=== PATIENT | female | born 1955 | race Caucasian/White ===

== ENCOUNTER → 2021-10-20 09:00 | Outpatient (BNVA) | payer MEDICARE, SELFPAY | PROVIDERS: PCP Family Medicine; Visit Provider Internal Medicine Rheumatology | DX: M15.9 Polyosteoarthritis, unspecified (principal); M79.7 Fibromyalgia; L40.0 Psoriasis vulgaris; Z79.899 Other long term (current) drug therapy; E11.9 Type 2 diabetes mellitus without complications; Z11.59 Encounter for screening for other viral diseases; Z11.1 Encounter for screening for respiratory tuberculosis; Z79.84 Long term (current) use of oral hypoglycemic drugs; G47.30 Sleep apnea, unspecified; Z82.61 Family history of arthritis; M45.6 Ankylosing spondylitis lumbar region | CPT/HCPCS: 36415; 72100; 72202; 73130; 73630; 80076; 82306; 82565; 85025; 85651; 86038; 86140; 86200; 86431; 86480; 86704; 86803; 86812; 87340; 99204; 99214 ==

== ENCOUNTER → 2022-01-05 12:51 | Outpatient (BNVA) | payer MEDICARE, SELFPAY | PROVIDERS: PCP Family Medicine; Visit Provider Internal Medicine Rheumatology | DX: M15.9 Polyosteoarthritis, unspecified (principal); Z79.899 Other long term (current) drug therapy; L40.0 Psoriasis vulgaris; R76.8 Other specified abnormal immunological findings in serum; Z11.59 Encounter for screening for other viral diseases; Z11.1 Encounter for screening for respiratory tuberculosis; Z82.61 Family history of arthritis; M79.7 Fibromyalgia; G47.30 Sleep apnea, unspecified; K21.9 Gastro-esophageal reflux disease without esophagitis | CPT/HCPCS: 99214 ==

== ENCOUNTER → 2022-04-05 13:59 | Outpatient (BNVA) | payer MEDICARE, SELFPAY | PROVIDERS: PCP Family Medicine; Visit Provider Internal Medicine Rheumatology | DX: Z79.899 Other long term (current) drug therapy (principal); R76.8 Other specified abnormal immunological findings in serum; L40.0 Psoriasis vulgaris; M19.90 Unspecified osteoarthritis, unspecified site | CPT/HCPCS: 99214 ==

== ENCOUNTER → 2022-06-29 13:48 | Outpatient (BNVA) | payer MEDICARE, SELFPAY | PROVIDERS: PCP Family Medicine; Visit Provider Internal Medicine Rheumatology | DX: M19.90 Unspecified osteoarthritis, unspecified site (principal); L40.0 Psoriasis vulgaris; Z79.899 Other long term (current) drug therapy; R76.8 Other specified abnormal immunological findings in serum | CPT/HCPCS: 80076; 82565; 85025; 86140; 99214 ==

== ENCOUNTER → 2022-08-04 14:04 | Outpatient (BNVA) | payer MEDICARE, SELFPAY | PROVIDERS: PCP Family Medicine; Visit Provider Internal Medicine Rheumatology | DX: M19.90 Unspecified osteoarthritis, unspecified site; R76.8 Other specified abnormal immunological findings in serum; Z79.899 Other long term (current) drug therapy; L40.0 Psoriasis vulgaris | CPT/HCPCS: 80076; 82565; 85025; 86140 ==

== ENCOUNTER → 2022-09-29 12:06 | Outpatient (BNVA) | payer MEDICARE, SELFPAY | PROVIDERS: PCP Family Medicine; Visit Provider Internal Medicine Rheumatology | DX: R76.8 Other specified abnormal immunological findings in serum (principal) | CPT/HCPCS: 86160; 86162; 86235; 86255; 86376; 86800 ==

== ENCOUNTER 2022-11-11 12:31 | Outpatient (CLI) | payer MEDICARE, SELFPAY ==
[2022-11-11 13:23] LABS: Basophils # 0.1 10^3/uL (0.0-0.1); Basophils % 0.7 %; Eosinophils # 0.2 10^3/uL (0.0-0.8); Eosinophils % 2.1 %; Hematocrit 38.2 % (36-47); Lymphocytes # 2.1 10^3/uL (0.8-4.8); Lymphocytes % 28.1 %; Mean Corpuscular Hemoglobin 31.1 pg (27-33); Mean Corpuscular Volume 91.4 fl (85-98); Mean Platelet Volume 9.9 fL (7.4-10.4); Monocytes # 0.5 10^3/uL (0.2-0.9); Monocytes % 7.1 %; Neutrophils # 4.51 10^3/uL (1.8-7.7); Neutrophils % 61.7 %; Nucleated Red Blood Cells % 0 %; Platelet Count 292 10^3/cmm (157-399); Red Blood Count 4.18 10^6/uL (3.85-5.65); Red Cell Distribution Width 13.4 % (12.1-15.1)
[2022-11-11 14:00] LABS: Alanine Aminotransferase 13 U/L (0-33); Albumin Level 4.6 g/dL (3.5-5.2); Alkaline Phosphatase 88 U/L (35-105); Aspartate Amino Transferase 19 U/L (0-32); Globulin 2.7 g/dL (1.3-4.6); Total Bilirubin 0.2 mg/dL (0.15-1.2); Total Protein 7.3 g/dL (6.6-8.7)
[2022-11-15 11:37] LABS: COMPLEMENT, TOTAL (CH50) >60 U/mL (31-60)
[2022-11-15 11:50] LABS: COMPLEMENT COMPONENT C3C 151 mg/dL (83-193); COMPLEMENT COMPONENT C4C 35 mg/dL (15-57)
[2022-11-15 14:59] LABS: CENTROMERE B ANTIBODY <1.0 NEG AI (<1.0 NEG); JO-1 ANTIBODY <1.0 NEG AI (<1.0 NEG); RNP ANTIBODY <1.0 NEG AI (<1.0 NEG); SCL-70 ANTIBODY <1.0 NEG AI (<1.0 NEG); SJOGREN'S ANTIBODY (SS-A) <1.0 NEG AI (<1.0 NEG); SM ANTIBODY <1.0 NEG AI (<1.0 NEG); SS-B <1.0 NEG AI (<1.0 NEG)
[2022-11-15 18:14] LABS: THYROID PEROXIDASE ANTIBODIES 33 IU/mL (<9)
[2022-11-16 08:59] LABS: ANA SCREEN, IFA POSITIVE (NEGATIVE)
[2022-11-18 10:58] LABS: DNA AB (DS) CRITHIDIA,IFA NEGATIVE (NEGATIVE)
== END 2022-11-11 12:32 | disposition home or self-care (01) ==
PROVIDERS: PCP Family Medicine; Visit Provider Internal Medicine Rheumatology
DX: R76.8 Other specified abnormal immunological findings in serum (principal); M19.90 Unspecified osteoarthritis, unspecified site; Z79.899 Other long term (current) drug therapy
CPT/HCPCS: 80076; 82565; 85025; 86140; 86160; 86162; 86235; 86255; 86376

== ENCOUNTER 2023-03-01 14:58 | Outpatient (CLI) | payer MEDICARE, SELFPAY ==
--- NOTE | 2023-03-01 15:15 | MR_ITS ---
WS: [id number] MRI BRAIN WITHOUT CONTRAST HISTORY: R41.89 - Other symptoms and signs involving cognitive fun... COMPARISON: None available. TECHNIQUE: Diffusion imaging, multiplanar T1, T2 and FLAIR imaging obtained. No evidence for acute infarct or hemorrhage. Zaidi-white matter differentiation is normal. No prior infarct. There are a few scattered T2 and FLAIR signal hyperintensities within the white mat ter which are typical for the patient's age. No significant volume loss. No significant temporal lobe atrophy. Ventricles and extra-axial spaces are normal. No inferior displacement of cerebellar tonsils. The sella turcica and pituitary gland are unremarkabl e. Dural venous sinuses and [place] of [place] demonstrate no abnormality on this unenhanced studies. Paranasal sinuses: Clear. Mastoid air cells: Normal. Calvarium and scalp: Intact. IMPRESSION: 1. No acute infarct or significant volume loss. 2. Very mild small vessel ischemic type changes within the white matter.
== END 2023-03-01 14:59 | disposition home or self-care (01) ==
LOC: RAD 14:58
PROVIDERS: PCP Family Medicine; Visit Provider Internal Medicine Rheumatology
DX: R41.89 Other symptoms and signs involving cognitive functions and awareness (principal)
CPT/HCPCS: 70551

== ENCOUNTER → 2023-04-12 13:12 | Outpatient (BNVA) | payer MEDICARE, SELFPAY | PROVIDERS: PCP Family Medicine; Visit Provider Internal Medicine Rheumatology | DX: Z79.899 Other long term (current) drug therapy (principal); L40.50 Arthropathic psoriasis, unspecified; Z11.1 Encounter for screening for respiratory tuberculosis; L40.0 Psoriasis vulgaris; R76.8 Other specified abnormal immunological findings in serum | CPT/HCPCS: 36415; 80076; 82565; 85025; 86140; 86480; 99214 ==

== ENCOUNTER 2023-05-11 08:55 | Outpatient (CLI) | payer MEDICARE, SELFPAY ==
--- NOTE | 2023-05-11 09:05 | US_ITS ---
WS: [id number] US pelv w/transvag [id number] HISTORY: PELVIC PAIN/ABDOMINAL PAIN COMPARISON: None available. Uterus: 7.0 cm x 3.9 cm x 3.3 cm. Mild uterine atrophy. Very heterogeneous lobulated appearance of the uterus. There are multiple areas of shadowing from calcifications. Lobulations and soft tissue mass. The largest masses to the RIGHT of the uterus measuring 3.1 x 2.9 x 2.6 cm. Favor the fibroid uterus. Endometrium: 0.3 cm. Poorly visualized endometrium. Right ovary: 1.5 cm x 1.3 cm x 1.7 cm. Normal size and vascularity, no cystic or solid masses. Left ovary: Not visualized. No adnexal mass. No free fluid in the cul-de-sac. IMPRESSION: 1. Mild uterine atrophy with a very heterogeneous lobulated appearance. Suspect fibroid uterus. The largest fibroid contains calcifications in the RIGHT uterus measuring 3.1 x 2.9 x 2.6 cm. 2. Poorly visualized endometrium, obscured by the fibroids. 3. Normal RIGHT ovary. LEFT ovary is not visualized.
--- NOTE | 2023-05-11 09:05 | US_ITS ---
WS: [id number] Complete ABDOMINAL ULTRASOUND HISTORY: PELVIC PAIN/ABDOMINAL PAIN COMPARISON: None available. Liver: 17.2 cm in length. Normal size liver and echogenicity. No bile duct dilatation or mass. Portal Vein: Normal hepatopetal flow with monophasic waveform. Gallbladder: Normally distended gallbladder with no stones or wall thickening. CBD: 0.5 cm Pancreas: Normal size and echogenicity. Right kidney: 12.0 cm x 4.2 x 4.5 cm. Cortex:0.9 cm. Normal size and echogenicity. No hydronephrosis or mass. Left kidney: 10.7 cm x 5.5 cm x 3.9 cm. Cortex: 1.3 cm. Normal size and echogenicity. No hydronephrosis or mass. Spleen: 9.6 cm Aorta and IVC: Unremarkable abdominal aorta and IVC. Impression: Normal complete abdomen ultrasound.
== END 2023-05-11 08:56 | disposition home or self-care (01) ==
LOC: RAD 08:55
PROVIDERS: PCP Family Medicine; Visit Provider Family Medicine
DX: N85.8 Other specified noninflammatory disorders of uterus (principal); R10.2 Pelvic and perineal pain; R10.9 Unspecified abdominal pain
CPT/HCPCS: 76700; 76830; 76856

== ENCOUNTER 2023-06-26 09:36 | Outpatient (CLI) | payer MEDICARE, SELFPAY ==
--- NOTE | 2023-06-26 09:48 | NM_ITS ---
WS: [email or web address] NUCLEAR MEDICINE HIDA SCAN CLINICAL INFORMATION: PAIN GALLBLADDER AREA AND VOMITTING/ FIBROID UTERUS TECHNIQUE: Following intravenous administration of 7.8 mCi of technetium 99m mebrofenin, images of th e abdomen were obtained over the course of 60 minutes. Next, gallbladder ejection fraction was determ ined by obtaining preprandial and one-hour postprandial images of the gallbladder following oral erika stion of Ensure. COMPARISON: None. FINDINGS: Normal hepatic uptake at 5 minutes. Normal hepatic excretion. Normal common bile duct and small bowel activity. Gallbladder is visualized by 10 minutes. No evidence of acute cholecystitis. Gallbladder ejection fraction 63% within normal limits. No evidence of chronic cholecystitis. IMPRESSION: 1. No evidence of acute or chronic cholecystitis. 2. Gallbladder ejection fraction 63% within normal limits.
== END 2023-06-26 09:37 | disposition home or self-care (01) ==
PROVIDERS: PCP Family Medicine; Visit Provider Family Medicine
DX: D25.9 Leiomyoma of uterus, unspecified (principal)
CPT/HCPCS: 78227; A9537

== ENCOUNTER → 2023-07-03 14:02 | Outpatient (BNVA) | payer MEDICARE, SELFPAY | PROVIDERS: PCP Family Medicine; Referring Provider Family Medicine; Visit Provider Obstetrics & Gynecology | DX: Z01.419 Encounter for gynecological examination (general) (routine) without abnormal findings (principal) | CPT/HCPCS: 87624 ==

== ENCOUNTER → 2023-08-02 14:12 | Outpatient (BNVA) | payer MEDICARE, SELFPAY | PROVIDERS: PCP Family Medicine; Visit Provider Internal Medicine Rheumatology | DX: Z79.899 Other long term (current) drug therapy; L40.50 Arthropathic psoriasis, unspecified; L40.0 Psoriasis vulgaris; R76.8 Other specified abnormal immunological findings in serum | CPT/HCPCS: 36415; 80076; 82565; 85025; 86140; 99214 ==

== ENCOUNTER 2023-08-08 12:53 | Outpatient (CLI) | payer MEDICARE, SELFPAY ==
--- NOTE | 2023-08-08 13:00 | MM_ITS ---
WS: [email or web address] BILATERAL 3D TOMOSYNTHESIS DIGITAL SCREENING MAMMOGRAPHY WITH CAD CLINICAL INFORMATION: Z12.39 - Encounter for other screening for malignant neop... HISTORY: Screening mammogram. Chronic LEFT breast pain COMPARISON: 2019 TECHNIQUE: Bilateral CC and MLO views. FINDINGS: The breasts are composed of heterogeneous fibroglandular density tissue, which can limit the detectio n of small underlying mass lesions. Nodularity subareolar RIGHT breast near the 12 o'clock position a ppears progressed compared to previous measuring 1.3 cm best seen on the MLO view. Recommend further evaluation with RIGHT breast diagnostic mammography with spot compression views and ultrasound of thi s area. Multiple bilateral breast biopsy markers. Otherwise stable appearing nodules bilaterally. Stable nodu le RIGHT lower inner breast with biopsy marker. MM/[place] [id number] IMPRESSION: BI-RADS: 0-Incomplete: Need additional imaging evaluation FOLLOW UP: Need Additional Imaging Recommend RIGHT breast diagnostic mammography and ultrasound in further evaluat ion.
== END 2023-08-08 12:54 | disposition home or self-care (01) ==
LOC: MOBLMAM 13:05
PROVIDERS: PCP Obstetrics & Gynecology; Visit Provider Obstetrics & Gynecology
DX: Z12.31 Encounter for screening mammogram for malignant neoplasm of breast (principal); R92.333 Mammographic heterogeneous density, bilateral breasts; N63.41 Unspecified lump in right breast, subareolar; N63.14 Unspecified lump in the right breast, lower inner quadrant
CPT/HCPCS: 77063; 77067

== ENCOUNTER → 2023-12-14 13:20 | Outpatient (BNVA) | payer MEDICARE, SELFPAY | PROVIDERS: PCP Obstetrics & Gynecology; Visit Provider Internal Medicine Rheumatology | DX: L40.0 Psoriasis vulgaris (principal); L40.50 Arthropathic psoriasis, unspecified; R76.8 Other specified abnormal immunological findings in serum; M19.90 Unspecified osteoarthritis, unspecified site; Z79.899 Other long term (current) drug therapy; Z82.61 Family history of arthritis; Z87.39 Personal history of other diseases of the musculoskeletal system and connective tissue; G47.30 Sleep apnea, unspecified; M79.7 Fibromyalgia | CPT/HCPCS: 99214 ==

== ENCOUNTER → 2024-04-11 14:55 | Outpatient (BNVA) | payer MEDICARE, SELFPAY | PROVIDERS: PCP Obstetrics & Gynecology; Visit Provider Internal Medicine Rheumatology | DX: L40.0 Psoriasis vulgaris (principal); Z79.899 Other long term (current) drug therapy; R76.8 Other specified abnormal immunological findings in serum; L40.50 Arthropathic psoriasis, unspecified | CPT/HCPCS: 36415; 80076; 82565; 85025; 85651; 86140; 99214 ==

== ENCOUNTER → 2024-08-01 15:01 | Outpatient (BNVA) | payer MEDICARE, OTHER, SELFPAY | PROVIDERS: PCP Obstetrics & Gynecology; Visit Provider Internal Medicine Rheumatology | DX: L40.0 Psoriasis vulgaris (principal); Z79.899 Other long term (current) drug therapy; R76.8 Other specified abnormal immunological findings in serum; L40.50 Arthropathic psoriasis, unspecified; R06.02 Shortness of breath | CPT/HCPCS: 36415; 80076; 82565; 85025; 85651; 86140; 99214 ==

== ENCOUNTER 2024-08-14 13:17 | Outpatient (CLI) | payer MEDICARE, OTHER, SELFPAY | END 2024-08-14 13:18 | disposition home or self-care (01) | LOC: RT 13:21 | PROVIDERS: PCP Family Medicine; Visit Provider Internal Medicine Rheumatology | DX: R06.02 Shortness of breath (principal) | CPT/HCPCS: 94010; 94726; 94729 ==

== ENCOUNTER 2024-08-14 14:07 | Outpatient (CLI) | payer MEDICARE, OTHER, SELFPAY ==
--- NOTE | 2024-08-14 14:43 | XR_ITS ---
WS: [email or web address] XR knee LT 3V* [id number] REASON FOR EXAM: L40.50 - Arthropathic psoriasis, unspecified FINDINGS: No fracture or focal bone lesion. Mild to moderate narrowing of the medial knee joint space with moderate subchondral sclerosis and osteophytosis. Lateral knee joint space is intact intact and well preserved with mild subchondral sclerosis and osteophytosis. Patellofemoral joint space is intact possibly with mild narrowing. Mild to moderate subchondral sclerosis and osteophytosis of the patella. Moderate opposing osteophytosis of the medial femoral condyle. XR/XR knee LT 3V* [id number] IMPRESSION: Moderate to significant osteoarthritis of the left knee as above.
--- NOTE | 2024-08-14 14:43 | XR_ITS ---
WS: [email or web address] XR knee RT 3V* [id number] REASON FOR EXAM: L40.50 - Arthropathic psoriasis, unspecified FINDINGS: No fracture or focal bone lesion. No bone erosion. Moderate narrowing of the medial joint space with moderate subchondral sclerosis and mild to moderate osteophytosis. Lateral knee joint space is intact and well preserved with mild subchondral sclerosis and osteophytosis. Probable mild narrowing of the patellofemoral joint space with mild to moderate subchondral sclerosis and osteophytosis of the patella. Loose bodies within the posterior joint space. XR/XR knee RT 3V* [id number] IMPRESSION: Moderate to significant osteoarthritis of the right knee.
--- NOTE | 2024-08-14 14:43 | XR_ITS ---
WS: [email or web address] XR foot RT min 3V* [id number] REASON FOR EXAM: L40.50 - Arthropathic psoriasis, unspecified FINDINGS: No acute fracture or focal bone lesion. Probable old healed fracture of the base of the fifth metatarsal. Mild PIP subluxations. Mild to moderate valgus subluxation of the first MCP joint with mild joint space narrowing and mild subchondral sclerosis. Enlargement of the metatarsal head with moderate cystic change. Mild erosion of the sesamoids. Mild varus deformity of the first TMT joint with mild joint space narrowing and subchondral sclerosis. Remainder of the joint spaces of the forefoot are intact and relatively well preserved. Joint spaces of the midfoot are intact and relatively well preserved. Subtalar joint is intact and relatively well preserved. Small anterior calcaneal enthesophyte. XR/XR foot RT min 3V* [id number] IMPRESSION: Subluxations and mild osteoarthropathy of the forefoot as above. Calcaneal enthesophyte as above.
--- NOTE | 2024-08-14 14:43 | XR_ITS ---
WS: [email or web address] XR foot LT min 3V* [id number] REASON FOR EXAM: L40.50 - Arthropathic psoriasis, unspecified FINDINGS: PIP subluxation of the toes. Mild/moderate valgus subluxation with minimal joint space narrowing and subchondral sclerosis. Mild erosion of the sesamoids by the enlarged metatarsal head. Moderate cystic change in the enlarged metatarsal head. Mild varus deformity of the first TMT joint with minimal arthropathy. Joint spaces of the midfoot are intact and relatively well preserved. Subtalar joint is intact and relatively well preserved. Small anterior calcaneal enthesophyte. Remaining joint spaces of the forefoot are intact and relatively well preserved. Valgus subluxation of the first MCP joint. XR/XR foot LT min 3V* [id number] IMPRESSION: Forefoot subluxations with mild osteoarthritis as above. Small calcaneal enthesophyte as above.
== END 2024-08-14 14:08 | disposition home or self-care (01) ==
LOC: LAB 14:09 → RAD 14:38
PROVIDERS: PCP Family Medicine; Visit Provider Internal Medicine Rheumatology
DX: L40.50 Arthropathic psoriasis, unspecified (principal); M17.0 Bilateral primary osteoarthritis of knee; M25.762 Osteophyte, left knee; M25.761 Osteophyte, right knee; R93.6 Abnormal findings on diagnostic imaging of limbs; S93.331A Other subluxation of right foot, initial encounter; S93.332A Other subluxation of left foot, initial encounter; X58.XXXA Exposure to other specified factors, initial encounter; M77.31 Calcaneal spur, right foot; M77.32 Calcaneal spur, left foot
CPT/HCPCS: 73562; 73630

== ENCOUNTER 2024-08-20 14:29 | Outpatient (CLI) | payer MEDICARE, OTHER, SELFPAY ==
--- NOTE | 2024-08-20 14:45 | CT_ITS ---
WS: [email or web address] CT chest wo con [id number] HISTORY: R06.01 - Orthopnea TECHNIQUE: Axial imaging performed through the thorax. Coronal and sagittal reformats are submitted. All CT scans at [facility] use at least one of these dose optimization techniques: automated exposure control; mA and/or kV adjustment per patient size (includes targeted exams where dose is matched to clinical indication); or iterative reconstruction. CONTRAST: None DLP: 413.75 mGy.cm COMPARISON: None available. Lungs and central airway: Normal. Pleura: Normal. No pleural effusion. Heart and pericardium: Normal size heart with no pericardial effusion. Mediastinum and sandeep: No mediastinum or hilar adenopathy. Vessels: Minimal atherosclerotic plaque within the thoracic aorta. No dilatation. Normal size pulmonary artery. Chest wall and lower neck: No soft tissue masses. Upper abdomen: Small hiatal hernia. No adrenal mass. Osseous structures: Mild scoliosis thoracic spine. No destructive bone lesions. CT/CT chest wo con [id number] IMPRESSION: 1. Unremarkable chest CT. No pneumonia or pulmonary nodule. 2. Normal size heart. 3. No pericardial or pleural effusions. 4. Minimal atherosclerosis thoracic aorta.
== END 2024-08-20 14:30 | disposition home or self-care (01) ==
PROVIDERS: PCP Family Medicine; Visit Provider Internal Medicine Rheumatology
DX: R06.01 Orthopnea (principal); R06.02 Shortness of breath; K44.9 Diaphragmatic hernia without obstruction or gangrene; M41.84 Other forms of scoliosis, thoracic region
CPT/HCPCS: 71250

== ENCOUNTER → 2024-09-02 13:16 | Outpatient (BNVA) | payer MEDICARE, OTHER, SELFPAY | PROVIDERS: PCP Family Medicine; Visit Provider Podiatrist Foot & Ankle Surgery | DX: M72.2 Plantar fascial fibromatosis (principal); M24.571 Contracture, right ankle; B07.0 Plantar wart | CPT/HCPCS: 17110; 99204 ==

== ENCOUNTER → 2024-12-19 14:15 | Outpatient (BNVA) | payer MEDICARE, OTHER, SELFPAY | PROVIDERS: PCP Family Medicine; Visit Provider Internal Medicine Rheumatology | DX: L40.0 Psoriasis vulgaris (principal); Z79.899 Other long term (current) drug therapy; R76.89 Other specified abnormal immunological findings in serum; L40.50 Arthropathic psoriasis, unspecified; R03.0 Elevated blood-pressure reading, without diagnosis of hypertension; M79.7 Fibromyalgia | CPT/HCPCS: 36415; 80076; 82565; 85025; 85651; 86140; 99214 ==